=== PATIENT | male | born 2000 | race Caucasian/White ===

== ENCOUNTER 2021-06-07 19:56 | Emergency (ER) | payer OTHER, SELFPAY ==
[2021-06-07 19:57] VITALS: BP 130/68; PULSE 94; RESP 16; TEMP 37.1; O2SAT 100; BMI 24.2
--- NOTE | 2021-06-07 20:02 | ED.VIS.LOWEX ---
HPI History of Present Illness Chief Complaint: Lower Extremity Injury Narrative Narrative: 21-year-old male presenting with right knee pain. He states his posterior to his right knee into the upper aspect of his right calf. Patient states he was playing soccer and reached out to get a ball when he felt this area twisted his knee. He was able to ambulate after this. He did fall to the ground hitting his right knee but complains of mostly posterior knee pain. Patient denies numbness. Denies paresthesias. PFSH PFSH Medical History no medical history Home Medications NK 06/07/21 [History Last Taken Unknown] Allergy/AdvReac Type Severity Reaction Status Date / Time YOGURT Allergy Other Uncoded 06/07/21 19:59 Social History Smoking Status: Never smoker ROS ROS ED Constitutional Constitutional ED: Denies chills or fever(s) Eyes Eyes: Denies blurry vision or change in vision ENT ENT ED: Denies rhinorrhea or sore throat Cardiovascular Cardiovascular: Denies chest pain or palpitations Respiratory/Chest Respiratory/Chest: Denies cough or dyspnea Gastrointestinal Gastrointestinal: Denies abdominal pain or nausea Musculoskeletal Musculoskeletal: Reports other Details: Right knee and calf pain Integumentary Denies Abrasions or rash Neurologic Neurologic: Denies headache(s) or paresthesias EXAM Physical Exam Const Vital Signs: 06/07/21 19:57 Temperature 98.7 F Temperature Source Oral Pulse Rate 94 Respiratory Rate 16 Blood Pressure 130/68 H Blood Pressure Mean 88 Pulse Ox 100 Oxygen Delivery Method Room Air Positive well nourished General Appearance ED: NAD HEENT normocephalic and atraumatic Eyes PERRL Resp normal respiratory effort and no retractions Cardio regular rate and regular rhythm Extremity Extremity Narrative: Tenderness palpation posterior to the right knee. This is in the area of the upper calf. No obvious deformity or bony tenderness. No ligament laxity is noted. Extensor mechanism is intact in the right knee. Neuro oriented x3 Sensorium / Orientation: alert Psych mental status grossly normal Skin No no wounds Rashes: No no rashes MDM MDM MDM Narrative Medical decision making narrative: Patient presents after twisting and falling on his right knee. He has been ambulatory on scene and in the ER. He declines analgesia. I did not find any ligament laxity on exam. It is possible he could have a calf strain versus slight tear. I will obtain imaging of the right knee given his pain. X-ray of the right knee on my interpretation shows no acute fracture or subluxation. Patient declined analgesia. He will be placed in Jim wrap. He does not require crutches. Patient given follow-up with primary care as needed. He will alternate Tylenol, ibuprofen and ice his knee as needed. Impression: 1. Right knee strain Radiography Diagnostic Testing: Clinical Impression(s) from Imaging Studies Knee X-Ray 06/07/21 20:20 IMPRESSION: Negative right knee x-rays. Electronically Signed: Braulio Martinez MD at 20:37 EDT Tel , Service support , Discharge Plan Triage Chief Complaint: Lower Extremity Injury ED Provider: Alex Biggs Dx/Rx/DC Orders Instructions: ED Knee Sprain Prescriptions: No Action NK RF: 0 Primary Care Provider: NOT,DEFINED Referrals: Marielos Cobb MD [STAFF PHYSICIAN] - As Needed NOT,DEFINED [Primary Care Provider] - Disposition Disposition: Home, Self Care
--- NOTE | 2021-06-07 20:20 | RAD_ITS ---
EXAM: XR Right Knee Complete, 4 or More Views CLINICAL INDICATION: 21 years old, Male; knee pain TECHNIQUE: Four or more views of the right knee. This report was created using [employer] report generation technology. COMPARISON: None. FINDINGS: Bones/joints: Unremarkable. No acute fracture. No subluxation. Normal alignment. Preservation of the joint space. No sclerotic or destructive changes observed. Soft tissues: Unremarkable. No soft tissue swelling or gas. No radiopaque foreign body. RAD/Knee 4 or More Views IMPRESSION: Negative right knee x-rays. Electronically Signed: Braulio Martinez MD at 20:37 EDT Tel , Service support ,
[2021-06-07 21:50] VITALS: RESP 16
== END 2021-06-07 21:50 | disposition home or self-care (01) ==
PROVIDERS: Emergency Provider Student in an Organized Health Care Education/Training Program
DX: S86.911A Strain of unspecified muscle(s) and tendon(s) at lower leg level, right leg, initial encounter (principal); X50.1XXA Overexertion from prolonged static or awkward postures, initial encounter; Y93.66 Activity, soccer; Y92.9 Unspecified place or not applicable
CPT/HCPCS: 73564; 99284

== ENCOUNTER 2023-02-22 19:57 | Emergency (ER) | payer OTHER, SELFPAY ==
[2023-02-22 19:58] VITALS: BP 124/57; PULSE 80; RESP 16; TEMP 36.6; O2SAT 100; BMI 25.7
--- NOTE | 2023-02-22 20:17 | EX.ED.GENINJ ---
HPI History of Present Illness Chief Complaint: Back Informant: patient Narrative Narrative: Patient hurt his back weight lifting. Patient was doing calf raises. It sounds like he was . He had a weight bar across his upper shoulders. He started to feel tightness in his right mid lower back. He stopped doing that exercise. He then did some quadriceps and other exercises. Since then the back is just spasmed more. He states if he reaches his right arm up toward the ceiling it hurts a lot. But if he bends the other way it does not hurt much. Twisting causes some pain. He has no radicular pain. No coughing or trouble breathing. No bowel or bladder dysfunction. No numbness or tingling distally. No weakness distally. No lightheadedness syncope or presyncope. He is on no medications He has no known medication allergies [facility] Home Medications cyclobenzaprine 10 mg tablet 10 mg PO TID PRN Muscle Spasm #20 TABLETS 02/22/23 [Rx Last Taken Unknown] naproxen 500 mg tablet (Naprosyn) 500 mg PO BID PRN pain #20 tabs 02/22/23 [Rx Last Taken Unknown] Allergy/AdvReac Type Severity Reaction Status Date / Time Milk Containing Products Allergy NEEDS Verified 02/22/23 19:57 (Dairy) FOLLOW-UP Social History Smoking Status: Never smoker ROS ROS ED Constitutional Constitutional ED: Denies chills or fever(s) ENT ENT ED: Denies rhinorrhea Cardiovascular Cardiovascular: Denies chest pain, palpitations, paroxysmal nocturnal dyspnea or racing heartbeat Respiratory/Chest Respiratory/Chest: Denies cough, dyspnea or paroxysmal nocturnal dyspnea Gastrointestinal Gastrointestinal: Denies abdominal pain, nausea or vomiting Genitourinary Genitourinary ED: Denies hematuria Musculoskeletal Musculoskeletal: Reports back pain; Denies arthralgias or neck pain Integumentary Denies rash Neurologic Neurologic: Denies headache(s), paresthesias or weakness Hematologic/Lymphatic Hematologic/Lymphatic: Denies easy bleeding or easy bruising Allergic/Immunologic Allergic/Immunologic ED: Denies urticaria EXAM Physical Exam Narrative Exam Narrative: Patient awake alert laying in bed. He looks comfortable lying in bed but he does get stiff when he tries to get up and move. HEENT: No pallor. Mucous membranes are moist. No sign of trauma. Eyes show no pallor. Neck is supple. No pain with motion. Lungs are clear bilaterally with equal breath sounds and no pain with a deep breath. No chest wall tenderness. Heart is regular without murmur gallop rub or muffled heart tones. Peripheral pulses are equal x4. Normal strength and matched timing. Abdomen is soft and completely nontender with normal bowel sounds also. Back does show some right-sided paraspinal lumbar tenderness. This is reproduced with motion. There is no rash. No swelling. Extremities show no deformity tenderness or pain with motion Neuro: Patient has strong gait. Normal Achilles and patellar reflexes. Normal strength. He can get off the bed stand on his toes. No numbness. Const Vital Signs: 02/22/23 19:58 Temperature 98 F Temperature Source Temporal Pulse Rate 80 Respiratory Rate 16 Blood Pressure 124/57 H Blood Pressure Mean 79 Pulse Ox 100 MDM MDM MDM Narrative Medical decision making narrative: I had a long talk with the patient. I do not think he needs imaging. He had slow onset of pain after lifting. He felt a little tight. But then over the next half an hour or hour it tightened up more. It is reproducible with motion. He has no focal bony tenderness. He has no neurologic symptoms. He has no syncope or presyncope. I do not think this represents acute vascular emergency. No sign of neurologic involvement. No red flags of back pain. I think muscle relaxants nonsteroidals ice and rest are appropriate. We did discuss reasons to return. Discharge Plan Triage Chief Complaint: Back ED Provider: Tr Etienne Dx/Rx/DC Orders Clinical Impression: Lumbar strain, Muscle spasm Instructions: ED Back Sprain/Strain Prescriptions: New cyclobenzaprine [cyclobenzaprine] 10 mg tablet 10 mg PO TID PRN (Reason: Muscle Spasm) Qty: 20 0RF naproxen [Naprosyn] 500 mg tablet 500 mg PO BID PRN (Reason: pain) Qty: 20 0RF Primary Care Provider: Care Physician,No Primary Referrals: Miguelina Gonzalez DO [Med Staff - Pipe Sm[employer] Machine Operator] - 1 Week if not improving NOT,DEFINED [Non-Staff] - Disposition Disposition: Home, Self Care Discharge Date/Time: 02/22/23 20:40
[2023-02-22] MEDS: cycloBENZAPRine HCl 10 MG Tablet PO (20:33)
[2023-02-22] MEDS: Naproxen 500 MG Tablet PO (20:33)
== END 2023-02-22 20:40 | disposition home or self-care (01) ==
LOC: ED 20:30
PROVIDERS: Emergency Provider Emergency Medicine; Visit Provider Emergency Medicine
DX: S39.012A Strain of muscle, fascia and tendon of lower back, initial encounter (principal); M62.838 Other muscle spasm; X50.0XXA Overexertion from strenuous movement or load, initial encounter; Y93.89 Activity, other specified
CPT/HCPCS: 99282